=== PATIENT | male | born 1975 | race Caucasian/White ===

== ENCOUNTER 2020-08-11 19:01 | Inpatient (IN) | payer OTHER ==
[~2020-08-11] VITALS: Ht 170.2 cm; Wt 86.6 kg
--- NOTE | ~2020-08-11 | EKG ---
[address] [address] ELECTROCARDIOGRAM REPORT Name: BRENNEN STUBBS Room #: [facility]..#: [id number] Admission: Attend Phys: Discharge: Date of : 77 Report #: [id number] [facility] ED Test Date: 2020-08-11 Test Time: 19:11:46 Pat Name: BRENNEN STUBBS Department: Room: Gender: M [employer] Manager: KIKI : 1975 Requested By: Brandon Bullock Order Number: [id number] MD: Measurements Intervals [place] Rate: 91 P: 43 MI: 140 QRS: 15 QRSD: 90 T: 59 QT: 364 QTc: 448 Interpretive Statements Sinus rhythm Probable left atrial enlargement No previous ECG available for comparison [email or web address] By: 10 10 Epiphany MD Talya /EPI
[2020-08-11 19:06] VITALS: BP 154/86
[2020-08-11] MEDS ORDERED: ASA81BEC PO (20:26)
[2020-08-11 20:30] LABS: ABSOLUTE NEUTROPHILS 8.3 thou/uL (1.4-8.2); BASOPHILS 0.6 % (0.0-2.0); HEMATOCRIT 43.1 % (42.0-52.0); HEMOGLOBIN 14.6 gm/dL (14.0-18.0); LYMPHOCYTES 20.1 % (24.0-44.0); MCH 30.3 pg (26.0-34.0); MCHC 33.8 g/dL (28.0-37.0); MCV 89.5 fL (80.0-100.0); MONOCYTES 6.9 % (1.0-8.0); PLATELET COUNT 177 thou/uL (150-400); POLYS 71.4 % (36.0-66.0); RBC 4.82 mil/uL (4.50-6.00); RDW 13.1 % (10.5-14.5); WBC 11.6 thou/uL (4.0-11.0)
[2020-08-11 20:42] LABS: ANION GAP 12 mmol/L (7-16); BUN 19 mg/dL (7-18); CALCIUM 8.7 mg/dL (8.5-10.1); CHLORIDE 103 mmol/L (98-107); CO2 25 mmol/L (21-32); CREATININE 0.7 mg/dL (0.7-1.3); GLUCOSE 202 mg/dL (74-106); POTASSIUM 3.9 mmol/L (3.5-5.1); SODIUM 140 mmol/L (136-145)
[2020-08-11 20:53] LABS: ALBUMIN 3.5 g/dL (3.4-5.0); TOTAL BILIRUBIN 0.4 mg/dL (0.2-1.0); TOTAL PROTEIN 7.3 g/dL (6.4-8.2); TROPONIN-I <0.06 ng/mL (<0.06)
[2020-08-11 21:14] LABS: SGPT 46 U/L (30-65)
[2020-08-11 21:15] LABS: SGOT 20 U/L (15-37)
[2020-08-11 22:51] LABS: CHOLESTEROL 170 mg/dL (<200); HDL CHOLESTEROL 17 mg/dL (>40); TRIGLYCERIDE 925 mg/dL (<150); VLDL 185 mg/dL (<40)
[2020-08-11 22:52] LABS: SERUM ASSESSMENT Moderate Lipemia
[2020-08-11 23:08] VITALS: BP 134/80
[2020-08-11 23:22] VITALS: BP 112/72
[2020-08-12] VITALS: BP 132/73
--- NOTE | 2020-08-12 01:02 | NUR ---
ADMISSION NOTE: ADMITTED TO THE FLOOR. CHEST PAIN PRESISTS TONIGHT. HE IS NOT SHOWING ANY SIGNS OF PAIN. BLOOD PRESSURE WNL'S, NO GUARDING OR TACHYPNEA, NO DIAPHORESIS. CALM AND COOPERATIVE. DENIES CONCERNS, EXCEPT WANTING TO RESOLVE HIS CHEST PAIN.
[2020-08-12 02:37] LABS: HEMATOCRIT 42.6 % (42.0-52.0); HEMOGLOBIN 14.2 gm/dL (14.0-18.0); MCH 29.6 pg (26.0-34.0); MCHC 33.3 g/dL (28.0-37.0); RBC 4.79 mil/uL (4.50-6.00); RDW 13.1 % (10.5-14.5); WBC 10.9 thou/uL (4.0-11.0)
[2020-08-12 02:38] LABS: ANION GAP 11 mmol/L (7-16); BUN 20 mg/dL (7-18); CALCIUM 8.5 mg/dL (8.5-10.1); CHLORIDE 102 mmol/L (98-107); CO2 23 mmol/L (21-32); CREATININE 0.7 mg/dL (0.7-1.3); GLUCOSE 164 mg/dL (74-106); POTASSIUM 3.5 mmol/L (3.5-5.1); SODIUM 136 mmol/L (136-145)
[2020-08-12 02:47] LABS: TROPONIN-I <0.06 ng/mL (<0.06)
--- NOTE | 2020-08-12 02:55 | NUR ---
lab called and patient is covid positive.
[2020-08-12 03:46] VITALS: BP 116/74
[2020-08-12 07:17] VITALS: BP 108/68
[2020-08-12] MEDS ORDERED: NAPROSYN500 M1 PO (10:04)
[2020-08-12 10:55] VITALS: BP 108/68
--- NOTE | 2020-08-12 13:18 | NUR ---
ASSUMED CARE OF PT AT 0700. PT AOX4 WITH LIMITED SPANISH. IN NO APPARENT DISTRESS. COMPLAINS OF LEFT SIDED CHEST PAIN. REPRODUCIBLE WITH DEEP INSPIRATION. OTHERWISE VOICING NO COMPLAINTS. CARDIAC WORKUP NEGATIVE. OK TO D/C PER PHYSICIAN. EDUCATED ON ISOLATION GUIDELINES - PATIENT AGREEABLE. WHEELED DOWN WITH STAFF. ALL QUESTIONS AND CONCERNS ADDRESSED PERSONALLY WITH RN.
[2020-08-13 02:05] LABS: GLYCOHEMOGLOBIN (HGB A1C) 9.3 % (4.8-5.6)
--- NOTE | 2020-08-13 08:14 | HC ---
[facility] [place] [address] CONSULTATION Name: BRENNEN STUBBS Room #: 357-P [facility] [place] ..#: [id number] Admission: 08/11/20 Attend Phys: Grover Petersen MD Discharge: 08/12/20 Date of : 77 Report #: [id number] THIS REPORT FOR: cc: RENEE - No family physician/PCP FAM - No family physician/PCP Trey Zuniga MD ~ DATE OF SERVICE: 08/12/2020 CARDIOLOGY CONSULTATION INDICATIONS: Chest pain. HISTORY OF PRESENT ILLNESS: This is a 44-year-old -speaking male with a history of diabetes and tobacco use, presenting with chest pain. Due to the language barrier, unable to obtain detailed history regarding his symptoms. It seems that he has discomfort starting from his left upper chest radiating down to the shoulder and left arm. It is not reproducible with movement of the arms. It seems to be worse with deep inspiration. He denies any shortness of breath. There is no apparent history of fever, chills, or nausea. PAST MEDICAL HISTORY: History of diabetes, had been on metformin a year ago, which he stopped taking. No history of hypertension. ALLERGIES: None. MEDICATIONS: Aspirin. SOCIAL HISTORY: Positive tobacco use, 1 pack per day. FAMILY HISTORY: Unobtainable. REVIEW OF SYSTEMS: As above. PHYSICAL EXAMINATION: VITAL SIGNS: Blood pressure is 118/70, heart rate is 80 beats per minute. GENERAL APPEARANCE: This is a well-developed, well-nourished male, in no acute distress. HEENT: Normocephalic, atraumatic. Oral mucosa is moist. NECK: Supple. LUNGS: CTA. CARDIAC: Regular rate and rhythm, S1, S2 positive. ABDOMEN: Soft, nontender. EXTREMITIES: No edema, no cyanosis. LABORATORY VALUES: Troponin is negative x 2. COVID test is positive by PCR. [facility] [address] [place] [address] CONSULTATION Name: BRENNEN STUBBS Room #: 357-P [facility]#: [id number] Admission: 08/11/20 Attend Phys: Grover Petersen MD Discharge: 08/12/20 Date of : 77 Report #: [id number] ECG reveals sinus rhythm, nonspecific T-wave flattening. ASSESSMENT AND PLAN: 1. Chest pain syndrome, 2 sets of troponin levels are negative and the ECG is unremarkable. The pain seems to be reproducible with deep inspiration. No further details can be obtained due to the language barrier. Suspicion for an ischemic etiology is low. We will eventually need stress testing once he is out of isolation. 2. Diabetes mellitus, as per hospitalist. 3. Tobacco use. Complete smoking cessation is advised. 4. COVID positive, as symptoms dictate treatment. <ELECTRONICALLY SIGNED> By: Trey Zuniga MD 08/13/20 0814 [id number] Trey Zuniga MD /carl
== END 2020-08-12 13:18 | disposition home or self-care (01) | DRG 205 ==
LOC: ER 19:01 → EROBS 21:57 → 3W 23:55
PROVIDERS: Emergency Medicine; Internal Medicine; Nurse Practitioner Family; ADMIT Hospitalist; ATTEND Hospitalist
DX: M94.0 Chondrocostal junction syndrome [Tietze] (principal); U07.1 COVID-19; E11.9 Type 2 diabetes mellitus without complications; F17.210 Nicotine dependence, cigarettes, uncomplicated; Z71.6 Tobacco abuse counseling
CPT/HCPCS: 10879